=== PATIENT | female | born 1980 ===

== ENCOUNTER 2025-06-15 10:45 | Emergency (ER) | payer OTHER, SELFPAY ==
[2025-06-15 10:53] VITALS: BP 184/104; PULSE 66; RESP 18; TEMP 36.6; O2SAT 98; BMI 26.8
--- NOTE | 2025-06-15 11:04 | ED_ITS ---
HPI - General Adult General Chief complaint: General Medical Stated complaint: eczema flare up on hands and feet Time Seen by Provider: 06/15/25 11:02 Source: patient, RN notes reviewed and old records reviewed Mode of arrival: ambulatory Limitations: no limitations History of Present Illness ED Provider: Est[facility] narrative: Patient is a 44-year-old female with history of eczema presenting to the emergency department with complaint of pruritic rash to bilateral hands, feet since . Seen at urgent care already and was prescribed a topical steroid cream. States she was unsure of how to use the cream, and was applying it excessively, and ran out. Called the urgent care and a prescription refill was sent but it was too early for the refill based on her insurance. She did have clobetasone cream at home and has also been using unscented oatmeal lotion. Denies fever, oral lesions. Unsure if this is related to preparing food for . complaint: rash Onset (ago): day(s) Related Data Allergies Allergy/AdvReac Type Severity Reaction Status Date / Time acetaminophen (From Percocet) Allergy Unknown Verified 06/15/25 11:09 oxycodone (From Percocet) Allergy Unknown Verified 06/15/25 11:09 Review of Systems Review of Systems: As per HPI Yes all other systems are reviewed and are negative Constitutional: Constitutional: Reports as per HPI Physical Exam ED Vital Signs: Vital Signs - 24 hr 06/15/25 10:53 Temperature 98 F Pulse Rate 66 Respiratory Rate 18 Blood Pressure 184/104 H Pulse Oximetry 98 Oxygen Delivery Method Room Air BMI result Body Mass Index 26.8 Vital signs have been reviewed and appear to be correct. Blood pressure elevated, patient talking and moving arm during BP check. Heart rate normal. Respiratory rate normal. Temperature normal. Oxygen saturation normal. Const General: cooperative, healthy appearing and no acute distress Orientation/consciousness: oriented to person, oriented to place, oriented to time and patient oriented x3 Limitations: no limitations HENMT Head: Yes normocephalic and Yes atraumatic Ears: external ears normal General nose exam: Normal external nose present Face and sinus: Yes face symmetric Mouth: oropharynx normal and moist mucous membranes Throat: Yes uvula midline Eyes Pupils: Equal, round and reactive pupils present Neck Neck: Yes normal visual inspection and Yes supple Resp Effort & Inspection: normal respiratory effort and able to speak in complete sentences Auscultation: clear to auscultation bilaterally Cardio Rate: regular rate Rhythm: regular rhythm Heart sounds: S1 normal heart sound present and S2 normal heart sound present GI Palpation (GI): Soft to palpation and nontender Auscultation: normoactive bowel sounds General: Yes no CVA tenderness Back/Spine/Pelvis Back: no CVA tenderness Skin Other: small 1-2mm fluid filled vesicles to palms, between digits, no erythema General skin exam: elasticity normal and turgor normal Neuro General: oriented to person, oriented to place, oriented to time, patient oriented x3, moves all extremities, no focal motor deficits and CN's II-XI intact bilaterally Cranial nerves: Yes Equal, round and reactive pupils present Cognition (Neuro): normal cognition Extrem General: Yes full ROM, Yes no pedal edema and Yes no calf tenderness Psych Mental Status: mental status grossly normal Affect: normal affect Thought process: Normal thought process present Medical Decision Making Medical Decision Making MDM Narrative: Patient is a 44-year-old female with history of eczema presenting to the emergency department with complaint of pruritic rash to bilateral hands, feet since . On exam patient is awake, A+Ox3, BP elevated, likely due to talking/motion during BP check, VS otherwise WNL, afebrile, normal neurological exam without focal deficits, physical exam findings as above. Given reported symptoms and physical exam findings, initial differential includes but is not limited to dyshydrotic eczema, atopic dermatitis. Do not suspect HFMD. Low suspicion for secondary syphillis. Discussed with patient that recommended treatment is topical steroid cream which she is already using. Recommended that she also intermittently use a thick unscented emollient cream as well as daily Zyrtec and famotidine. Will refer to Dermatology for ongoing symptoms. Return precautions discussed. Patient verbalized understanding of and agreement with plan. Differential Diagnosis Differential Diagnoses: The differential diagnosis associated with the presentation includes as per mdm Admission/Observation Consideration of admission/observation: Escalation of care including admission/observation considered Patient would have been admitted to the hospital and transferred to appropriate facility had their clinical presentation warranted hospital admission. External Record Review External record reviewed: Inpatient record, Office record and Outpatient record Discharge Plan Discharge Clinical Impression: Dyshidrotic eczema Patient Disposition: Home, Self-Care Instructions: Dyshidrotic Eczema (ED) Additional Instructions: You have been diagnosed with?dyshidrotic eczema, a skin condition that causes small, itchy blisters on your hands (and sometimes feet). This condition often comes and goes, but with proper care, you can control your symptoms and reduce flare-ups. Medications Topical Steroid Cream/Ointment * Apply your prescribed steroid medication (such as mometasone furoate or clobetasol propionate) to affected areas?once daily?for the time period your doctor specified.[1-2] * Ointments work better than creams because they provide more moisture and have fewer ingredients that might irritate your skin.[1-2] * Continue using as directed even if your skin starts to improve. * After your skin clears, you may need to use the medication 2-3 times per week to prevent flare-ups.[1-2] * WE ALSO RECOMMEND THAT YOU TAKE A DAILY ZYRTEC (CETIRIZINE). The normal dose is 10 mg (1 tab) daily. You can increase this up to a total of 40 mg. For example, began by taking 1 in the morning and 1 in the evening for a total of 20 mg per day. If this is ineffective, you can increase to 2 in the morning and 1 in the evening for a total of 30 mg per day. Ultimately you can increase the dose to 2 in the morning and 2 in the evening for a total dose of 40 mg. We also recommend that you take 20 mg of famotidine daily which is a different type of antihistamine. Other Prescription Medications?(if prescribed) * If steroids don't work well enough, your doctor may prescribe tacrolimus ointment or delgocitinib cream, which are non-steroid anti-inflammatory medications.[1] * Apply these medications as directed, typically twice daily.[1-2] * You may experience mild burning or itching when you first start using tacrolimus - this usually goes away.[2] Moisturizers (Very Important) Use moisturizers frequently throughout the day?- this is one of the most important parts of your treatment.[1] * Apply moisturizer to your entire hands at least 3 times daily: before work, after washing your hands, and before bed.[1] * Choose thick ointments (like petroleum jelly) rather than lotions or creams. [2] * Pick products with few ingredients and avoid those with fragrances, preservatives, or plant extracts.[1] * The more you moisturize, the better your skin barrier will heal.[1] Hand Care and Protection Washing Your Hands * Wash hands in lukewarm (not hot) water.[1] * Use mild, fragrance-free cleansers instead of regular soap.[1] * Dry your hands thoroughly, especially between your fingers.[1] * Avoid washing your hands too often - when possible, use hand crab backer instead to reduce irritation.[1] Protecting Your Hands * Remove all rings and jewelry from your hands during work and household tasks. [1] * Wear protective gloves when doing wet work (dishes, cleaning, food preparatio n).[2] * If you need to wear gloves for more than a few minutes, wear cotton gloves underneath waterproof gloves to prevent sweating and irritation.[2] * Avoid direct contact with irritants like harsh soaps, detergents, and cleaning products.[1-2] What to Avoid * Hot water * Harsh soaps and detergents * Prolonged wetness on your hands * Known allergens (if you've had allergy testing) * Excessive hand washing * Wearing rings during work or ticket machine operator When to Call Your Doctor Contact your doctor if: * Your symptoms don't improve after 2-4 weeks of treatment * Your skin becomes very red, painful, or starts oozing (signs of infection) * The blisters spread or get worse * You develop severe side effects from your medications * You need to miss work because of your hand eczema Follow-Up * Schedule a follow-up appointment as directed by your doctor * Bring your medications to your appointment so your doctor can review them * Keep track of what makes your eczema better or worse Important Reminders * This is a chronic condition that may come and go over time, but it can be controlled with proper treatment.[1][3] * Even when your skin looks clear, continue using moisturizers daily to prevent flare-ups.[1] * Identifying and avoiding triggers is just as important as using medications. [1] * If your job involves frequent hand washing or exposure to irritants, talk to your employer about workplace accommodations.[1] Your skin will improve with consistent treatment and good hand care habits. Be patient - it may take several weeks to see significant improvement. Referrals: [facility] [Provider Group] - 1 week Clinical Impression: Dyshidrotic eczema Print Language: Bulgarian
--- OUTSIDE RECORDS SUMMARY | 2025-06-15 14:34 | XMS_ITS | Encounter Summary ---
Author Organization [facility] Address [address] [place] [address] Care Team Providers Care Carding Utility Tender Name Role Phone Tom Senior MD Primary Care Provider Reason for Visit * Reason Onset Date Comments Hospitalization/ER 06/15/2025 Encounter Details Date Type Department Care Team (Late st Contact Info) Description 06/15/2025 Telephone Adult Medicine [facility] [address] [place] [phone] Tom Senior MD [address] [place] [phone] Social History Tobacco Use Types Packs/Day Years Used Date Smoking Tobacco: Never Assessed Comments Unknown Sex and Gender Information Value Date Recorded Sex Assigned at Not on file Legal Sex Female 11:41 AM EDT Gender Identity Not on file Sexual Orientation Not on file documented as of this encounter Progress Notes * Kiesha Samantha - 06/15/2025 12:15 PM EST Hospital/ER follow up appointment needed Hospital patient was treated at: [facility] Was this only an ER visit or was the patient admitted to the hospital? ER Visit only Date of visit if ER visit only: 06/15/25 If patient was admitted what was the date of discharge? Reason/diagnosis for visit or stay: exzema hands and feet. New Patient needs urgent referral or medication to cover until patient can be seen by Dermatology. When was the patient told to follow up? VICKY Was visit or stay related to an injury? If yes, what was the date of injury (DOI)? No If yes, was the injury due to: Not 3rd green party related documented in this encounter Plan of Treatment Not on file documented as of this encounter Visit Diagnoses Not on filedocumented in this encounter Care Teams Carding Utility Tender Relationship Specialty Start Date End Date Tom Senior MD [address] [place] [phone] PCP - General Internal Medicine 06/15/25 documented as of this encounter
--- OUTSIDE RECORDS SUMMARY | 2025-06-15 14:34 | XMS_ITS | Clinical Summary ---
Author Organization [facility] [address] [place] [address] [address] [place] [address] Phone Care Team Providers Care Gse Mechanic Name Role Phone Tom Senior MD Primary Care Provider Encounters Date Type Department Care Team Description 06/15/2025 Telephone Adult Medicine [facility] [address] [place] [phone] Tom Senior MD from Last 3 Months Social History Tobacco Use Types Packs/Day Years Used Date Smoking Tobacco: Never Assessed Comments Unknown Sex and Gender Information Value Date Recorded Sex Assigned at Not on file Legal Sex Female 11:41 AM EDT Gender Identity Not on file Sexual Orientation Not on file Last Filed Vital Signs Vital Sign Reading Time Taken Comments Blood Pressure 148/80 02/08/2024 5:22 PM EDT Pulse 66 02/08/2024 5:22 PM EDT Temperature - - Respiratory Rate - - Oxygen Saturation - - Inhaled Oxygen Concentration - - Weight - - Height - - Body Mass Index - - Plan of Treatment Health Maintenance Due Date Last Done Comments Breast Cancer Screening 1982 DTaP,Tdap,and Td Vaccines (1 - Tdap) 2001 Hepatitis B Vaccines (1 of 3 - 19+ 3-dose series) 2001 Cervical Cancer Screening: P ap Smear 2003 HPV Vaccines (1 - 3-dose SCD M series) 2009 HIV Screening 04/29/2024 Hepatitis C Screening 04/29/2024 Social Influencers of Health Screening 04/29/2024 Depression Screening 07/16/2024 COVID-19 Vaccine (1 - 2024-2 6 season) 2025 Influenza Vaccine (#1) 2025 RSV Immunization Adult Patie nts (1 - 1-dose 75+ series) 2057 HIB Vaccines Aged Out No longer eligi ble based on patient's age to complete this topic Hepatitis A Vaccines Aged Out No long er eligible based on patient's age to complete this topic IPV Vaccines Aged Out No longer eligi ble based on patient's age to complete this topic MMR Vaccines Aged Out No longer eligi ble based on patient's age to complete this topic Meningococcal ACWY Vaccine Aged Out N o longer eligible based on patient's age to complete this topic Meningococcal B Vaccine Aged Out No l onger eligible based on patient's age to complete this topic Pneumococcal Vaccine: Pediat rics (0 to 5 Years) and At-Risk Patients (6 to 49 Years) Aged Out No longer eligible b ased on patient's age to complete this topic RSV Immunization Patients Un vinny 20 months Aged Out No longer eligible b ased on patient's age to complete this topic Varicella Vaccines Aged Out No longer eligible based on patient's age to complete this topic Insurance [facility] Care Teams Gse Mechanic Relationship Specialty Start Date End Date Tom Senior MD [address] [place] [phone] PCP - General Internal Medicine 06/15/25
== END 2025-06-15 11:35 | disposition home or self-care (01) ==
PROVIDERS: Emergency Provider Emergency Medicine Emergency Medical Services
DX: L30.1 Dyshidrosis [pompholyx] (principal)
CPT/HCPCS: 99281; 99283